=== PATIENT | female | born 1950 ===

== ENCOUNTER 2018-08-15 13:54 | Emergency (ER) | payer SELFPAY ==
[2018-08-15 14:22] VITALS: BMI 28.3
--- NOTE | 2018-08-15 14:24 | C.PDOC ---
History Of Present Illness 68-year-old female with a PMHx of hypertension, diabetes, hyperthyroidism, and GERD, presents today accompanied by son for medication refill. Patient states she ran out of medications 3 weeks ago. Of note, patient is on vacation here with family, expected to return to the [place] in 1 month. She denies any somatic complaints. Time Seen by Provider: 08/15/18 14:21 Chief Complaint (Nursing): Med Refill History Per: Patient History/Exam Limitations: no limitations Onset/Duration Of Symptoms: Days Current Symptoms Are (Timing): Still Present Past Medical History Reviewed: Historical Data, Nursing Documentation, Vital Signs Vital Signs: Last Vital Signs Temp 98.0 F 08/15/18 14:13 Pulse 75 08/15/18 14:13 Resp 18 08/15/18 14:13 BP 118/78 08/15/18 14:13 Pulse Ox 96 08/15/18 14:13 - Medical History PMH: Arthritis, Diabetes, GERD, HTN, Hyperthyroidism Surgical History: Family History: States: No Known Family Hx - Social History Hx Alcohol Use: No Hx Substance Use: No - Immunization History Hx Tetanus Toxoid Vaccination: No Hx Influenza Vaccination: No Hx Pneumococcal Vaccination: No Review Of Systems Except As Marked, All Systems Reviewed And Found Negative. Constitutional: Negative for: Fever, Chills, Other (Polydipsia) Eyes: Negative for: Vision Change ENT: Negative for: Nose Congestion Cardiovascular: Negative for: Chest Pain, Palpitations Respiratory: Negative for: Cough, Shortness of Breath Gastrointestinal: Negative for: Nausea, Vomiting, Abdominal Pain Genitourinary: Negative for: Dysuria, Other (Polyuria) Musculoskeletal: Negative for: Back Pain Skin: Negative for: Rash Neurological: Negative for: Weakness, Numbness, Altered Mental Status, Headache, Dizziness Physical Exam - Physical Exam Appears: Well, Non-toxic, No Acute Distress Skin: Normal Color, Warm, Dry Head: Atraumatic, Normacephalic, No Tenderness Eye(s): bilateral: Normal Inspection, PERRL, EOMI Nose: Normal Oral Mucosa: Moist Throat: Normal Neck: Normal, Normal ROM, Supple Cardiovascular: Rhythm Regular Respiratory: Normal Breath Sounds Gastrointestinal/Abdominal: Normal Exam, Bowel Sounds (normoactive), Soft, No Tenderness Back: Normal Inspection, No CVA Tenderness, No Paraspinal Tenderness Extremity: Normal ROM, No Tenderness, Capillary Refill (< 2sec) Extremity: Bilateral: Atraumatic, No Pedal Edema, Normal Color And Temperature Pulses: Left Radial: Normal, Right Radial: Normal Neurological/Psych: Oriented x3, Normal Speech, Normal Cognition, Normal Cranial Nerves, Normal Motor, Normal Sensation Gait: Steady ED Course And Treatment - Laboratory Results Result Diagrams: 08/15/18 15:42 08/15/18 15:42 O2 Sat by Pulse Oximetry: 96 (RA) Pulse Ox Interpretation: Normal Medical Decision Making Medical Decision Making: Translation provided by son and nurse Flako to ensure patient and family understanding throughout the encounter. 15:20 Fingerstick 262 Case discussed at length with ED attending Dr. Landaverde, who recommends basic labwork. Lengthy discussion had with patient regarding necessity for bloodwork secondary to hyperglycemia to r/o DKA. Agrees to bloodwork and urine. Administered 1 500cc bolus IVF hydration. Progress: Labs reviewed. TSH low with normal T3,T4. Otherwise unremarkable, pt not in DKA. UA shows +nitrates, leuks, and bacteria. Will treat UTI with Keflex. BP normal here in ED, will not refill HTN medication secondary to risk of hypotension. Pt advised to followup in clinic for the rest of her medication refills. Diagnostic testing results discussed with ED attending Dr. Landaverde who recommends discharge home with diabetic medication refill and keflex with outpatient followup in clinic 17:30 On re-evaluation patient reports feeling well and is comfortable going home. Vital signs stable. Repeat fingerstick is 203. Patient will be discharged home with diabetic medication prescriptions as well as Keflex for UTI. Diagnostic testing results and plan of care discussed with patient. Strict instructions given regarding prescription use, importance of followup, and signs/symptoms to return to ER including chest pain, abdominal pain, fever, chills, SOB, or any other new/worsening symptoms. Pt verbalized understanding of discussion. Patient is A&Ox3, ambluating with steady gait, with vital signs stable for discharge. Disposition Counseled Patient/Family Regarding: Studies Performed, Diagnosis, Need For Fo llowup, Rx Given - Disposition Referrals: [facility] [Outside] Disposition: HOME/ ROUTINE Disposition Time: 17:56 Condition: IMPROVED Additional Instructions: Glucfago cada 12 horas Metformina cada 12 horas Keflex cada 12 horas x 1 semana Seguimiento con clnica hoy Regrese a la vinicio de emergencias con cualquier sntoma nuevo o que empeore Prescriptions: Cephalexin [Keflex] 500 mg PO Q12H 7 Days #14 capsule GlipiZIDE [Glipizide] 10 mg PO Q12H 30 Days #60 tab Metformin HCl [Glucophage] 1,000 mg PO Q12H 30 Days #60 tablet Instructions: Urinary Tract Infection, Adult (DC), Hyperglycemia, Adult (DC), Blood Glucose Monitoring Forms: Gen Discharge Inst South [place]ese, Spout ([place]ese) Print Language: TELUGU - POA Present On Arrival: None - Clinical Impression Clinical Impression: Review of medication, Medication refill, UTI (urinary tract infection), Hyperglycemia - PA / INTERNAL MEDICINE PHYSICIAN ASSISTANT / Resident Statement MD/DO has reviewed & agrees with the documentation as recorded. - Scribe Statement The provider has reviewed the documentation as recorded by the Scribgerman Chavez All medical record entries made by the Rashiibgerman were at my direction and personally dictated by me. I have reviewed the chart and agree that the record accurately reflects my personal performance of the history, physical exam, medic al decision making, and the department course for this patient. I have also personally directed, reviewed, and agree with the discharge instructions and disposition.
--- NOTE | 2018-08-15 15:05 | C.PDOC ---
Chief Complaint (Nursing): Med Refill Past Medical History Vital Signs: Last Vital Signs Temp 98.0 F 08/15/18 14:13 Pulse 75 08/15/18 14:13 Resp 18 08/15/18 14:13 BP 118/78 08/15/18 14:13 Pulse Ox 96 08/15/18 14:13 - Medical History PMH: Arthritis, HTN, Hyperthyroidism - Social History Hx Alcohol Use: No Hx Substance Use: No - Immunization History Hx Tetanus Toxoid Vaccination: No Hx Influenza Vaccination: No Hx Pneumococcal Vaccination: No ED Course And Treatment O2 Sat by Pulse Oximetry: 96 Disposition - Disposition
[2018-08-15] MEDS ORDERED: Sodium Chloride 0.9% 500 ML IV ONE (15:34)
[2018-08-15 15:54] LABS: EOS # 0.1 K/uL (0.0-0.7); EOS % 2.1 % (0.0-4.0); HEMOGLOBIN 11.7 g/dL (11.0-16.0); LYMPH # 2.1 K/uL (1.0-4.3); LYMPH % 43.4 % (20.0-40.0); MEAN CELL VOLUME 69.8 fL (81.0-99.0); MEAN CORPUSCULAR HGB CONC 31.5 g/dL (33.0-37.0); MEAN PLATELET VOLUME 9.4 fL (7.2-11.7); MONO # 0.3 K/uL (0.0-0.8); MONO % 7.2 % (0.0-10.0); NEUT # 2.2 K/uL (1.8-7.0); NEUT % 46.3 % (50.0-75.0); NRBC % 0.1 % (0.0-2.0); RBC 5.34 Mil/uL (3.80-5.20); RED CELL DISTRIBUTION WIDTH 16.3 % (11.5-14.5); WHITE BLOOD COUNT 4.7 K/uL (4.8-10.8)
[2018-08-15 16:21] LABS: SQUAMOUS EPITHIAL 4 /hpf (0-5); URINE BACTERIA MANY (<OCC); URINE BILIRUBIN NEGATIVE (NEGATIVE); URINE BLOOD NEGATIVE (NEGATIVE); URINE CLARITY Hazy (Clear); URINE COLOR Yellow (YELLOW); URINE GLUCOSE (UA) 3+ mg/dL (Normal); URINE LEUKOCYTE ESTERASE 2+ Leu/uL (Negative); URINE PROTEIN NEGATIVE (NEGATIVE); URINE UROBILINOGEN NORMAL mg/dL (0.2-1.0)
[2018-08-15 16:21] LABS: ALB/GLOB RATIO 1.4 (1.0-2.1); ALBUMIN 4.2 g/dL (3.5-5.0); ALT/SGPT 21 U/L (9-52); AST/SGOT 17 U/L (14-36); BLOOD UREA NITROGEN 23 mg/dL (7-17); CALCIUM 9.3 mg/dl (8.6-10.4); GFR NON-AFRICAN AMERICAN > 60
[2018-08-15 16:37] LABS: T4 8.63 ug/dL (5.5-11.0)
[2018-08-15 16:51] LABS: T3 2.27 nmol/L (1.49-2.60)
[2018-08-15 18:03] VITALS: BP 126/74; PULSE 86; RESP 20; TEMP 98.2
[2018-08-18 23:27] VITALS: O2SAT 96
== END 2018-08-15 18:12 | disposition home or self-care (01) ==
LOC: C.ER 13:54
DX: N39.0 Urinary tract infection, site not specified (principal); E11.65 Type 2 diabetes mellitus with hyperglycemia; Z76.0 Encounter for issue of repeat prescription
CPT/HCPCS: 80053; 81001; 82948; 84436; 84443; 84480; 85025; 99283; J7040